=== PATIENT | female | born 1985 | race African-American/Black ===

== ENCOUNTER 2021-10-27 17:35 | Emergency (ER) | payer MEDICAID, OTHER ==
[~2021-10-27] VITALS: Ht 162.6 cm; Wt 97.6 kg
[2021-10-27 18:27] VITALS: BP 142/92
== END 2021-10-27 20:38 | disposition left against medical advice (07) ==
LOC: ER 17:35
DX: O98.513 Other viral diseases complicating pregnancy, third trimester (principal); Z20.822 Contact with and (suspected) exposure to COVID-19; Z53.21 Procedure and treatment not carried out due to patient leaving prior to being seen by health care provider; Z3A.31 31 weeks gestation of pregnancy